=== PATIENT | female | born 1950 | race Caucasian/White ===

== ENCOUNTER 2017-12-16 17:46 | Emergency (ER) | payer MEDICARE, MEDICAID ==
[~2017-12-16 17:46] MED LIST: CYMBALTA 60MG60 MG PO; MOTRIN 800800 MG/TAB PO; PERCOCET 325 MG1 TA2 PO; ZOCOR 20MG20 MG PO
[2017-12-16 17:50] VITALS: BP 151/75; TEMP 97.9
[2017-12-16] MEDS ORDERED: PRINIVIL10 MG PO (18:47)
[2017-12-16] MEDS ORDERED: TIROSINT25 MC1 PO (18:48)
[2017-12-16] MEDS ORDERED: MASON NATURAL2000 IU (18:49)
[2017-12-16] MEDS ORDERED: CALCIUM CARBON650 M2 (18:49)
[2017-12-16] MEDS ORDERED: VITAMIN E 400 U4001 PO (18:50)
[2017-12-16] MEDS ORDERED: VITAMIN C500 MG PO (18:50)
[2017-12-16 19:06] LABS: BASO % 0.3 % (0.0-2.0); EOS # 0.3 (0.0-0.7); EOS % 2.4 % (0-4.0); GRAN % 67.3 % (42.2-75.2); HEMATOCRIT 42.4 % (37.0-47.0); HEMOGLOBIN 14.2 g/dl (12.5-16.0); LYMPH # 2.6 (1.2-3.4); LYMPH % 22.1 % (20.0-51.0); MEAN CELL VOLUME 92 fl (80.0-100.0); MEAN CORPUSCULAR HEMOGLOBIN 31 pg (27.0-31.0); MEAN CORPUSCULAR HGB CONC 34 g/dl (33.0-37.0); MEAN PLATELET VOLUME 9.4 fl (7.4-10.4); MONO # 0.9 (0.1-0.6); MONO % 7.5 % (1.7-9.3); PLATELET COUNT 239 K/mm3 (130-400); RED BLOOD COUNT 4.59 M/mm3 (4.10-5.30); REDCELL DISTRIBUTION WIDTH-CV 13.5 % (11.5-14.5)
[2017-12-16 19:22] LABS: BILIRUBIN,TOTAL 0.4 mg/dL (0.0-1.0); CALCIUM 9.4 mg/dL (8.4-10.2); CREATININE, serum 0.64 mg/dL (0.52-1.25); POTASSIUM 3.7 mmol/L (3.4-5.0); TOTAL PROTEIN 7.5 gm/dL (6.4-8.2)
[2017-12-16] MEDS ORDERED: ZITHROMAX Z PA250 MG PO (21:38)
[2017-12-16 21:51] VITALS: PULSE 64
== END 2017-12-16 21:51 | disposition home or self-care (01) ==
LOC: COL.ER 17:46
PROVIDERS: Family Medicine
DX: J44.1 Chronic obstructive pulmonary disease with (acute) exacerbation (principal); F17.210 Nicotine dependence, cigarettes, uncomplicated; Z79.1 Long term (current) use of non-steroidal anti-inflammatories (NSAID)
CPT/HCPCS: Q9967

== ENCOUNTER → 2018-02-19 | Outpatient (CLI) | payer MEDICARE, MEDICAID ==
[~2018-02-19] MED LIST changes: +CALCIUM CARBON650 M2; +MASON NATURAL2000 IU; +PRINIVIL10 MG PO; +TIROSINT25 MC1 PO; +VITAMIN C500 MG PO; +VITAMIN E 400 U4001 PO; +ZITHROMAX Z PA250 MG PO
== END ==
LOC: MHCPAIN 12:33
DX: G89.29 Other chronic pain (principal); M47.817 Spondylosis without myelopathy or radiculopathy, lumbosacral region; M53.3 Sacrococcygeal disorders, not elsewhere classified
CPT/HCPCS: G0463

== ENCOUNTER → 2018-03-19 | Outpatient (CLI) | payer MEDICARE, MEDICAID | LOC: MHCPAIN 15:18 | DX: M79.18 Myalgia, other site (principal) | CPT/HCPCS: J1040 ==

== ENCOUNTER → 2018-06-18 | Outpatient (CLI) | payer MEDICARE, MEDICAID | LOC: MHCPAIN 15:42 | DX: G89.29 Other chronic pain (principal); M47.817 Spondylosis without myelopathy or radiculopathy, lumbosacral region; M53.3 Sacrococcygeal disorders, not elsewhere classified | CPT/HCPCS: G0463 ==

== ENCOUNTER 2018-11-07 16:51 | Emergency (ER) | payer MEDICARE, MEDICAID ==
[~2018-11-07] VITALS: Ht 167.6 cm; Wt 60.5 kg
[2018-11-07 17:06] VITALS: TEMP 97.8
[2018-11-07 18:18] LABS: BASO % 0.3 % (0.0-2.0); EOS # 0.2 (0.0-0.7); EOS % 1.6 % (0-4.0); GRAN # 6.9 (1.4-6.5); GRAN % 68.4 % (42.2-75.2); HEMATOCRIT 43.7 % (37.0-47.0); HEMOGLOBIN 14.6 g/dl (12.5-16.0); LYMPH # 2.3 (1.2-3.4); LYMPH % 23.1 % (20.0-51.0); MEAN CELL VOLUME 93 fl (80.0-100.0); MEAN CORPUSCULAR HEMOGLOBIN 31 pg (27.0-31.0); MEAN CORPUSCULAR HGB CONC 33 g/dl (33.0-37.0); MONO # 0.6 (0.1-0.6); MONO % 6.3 % (1.7-9.3); PLATELET COUNT 192 K/mm3 (130-400); RED BLOOD COUNT 4.69 M/mm3 (4.10-5.30); REDCELL DISTRIBUTION WIDTH-CV 14.3 % (11.5-14.5)
[2018-11-07] MEDS ORDERED: TOPROL XL 25MG25 MG PO (18:26)
[2018-11-07 18:27] LABS: ALANINE AMINOTRANSFERASE 10 U/L (9-52); ALBUMIN 4.2 gm/dL (3.5-5.0); ALKALINE PHOSPHATASE 65 U/L (50-136); ANION GAP 8 mmol/L (7-16); AST,SGOT 26 U/L (15-37); BILIRUBIN,TOTAL 0.3 mg/dL (0.0-1.0); BLOOD UREA NITROGEN 12 mg/dL (7-17); CALCIUM 9.9 mg/dL (8.4-10.2); CARBON DIOXIDE 27 mmol/L (22-30); CHLORIDE 107 mmol/L (98-107); CREATININE, serum 0.63 (0.52-1.25); GLUCOSE 130 mg/dL (74-106); POTASSIUM 3.7 mmol/L (3.4-5.0); SODIUM 142 mmol/L (137-145); TOTAL PROTEIN 7.4 gm/dL (6.4-8.2)
[2018-11-07] MEDS ORDERED: ULTRAM 50MG TAB50 MG PO (18:28)
[2018-11-07] MEDS ORDERED: ZOCOR 40MG40 MG PO (18:29)
[2018-11-07 18:32] LABS: PROTHROMBIN TIME 11.2 SECONDS (9.7-12.8)
[2018-11-07] MEDS ORDERED: FOSAMAX 70MG TA70 MG PO (18:33)
[2018-11-07 18:38] LABS: TROPONIN-I < 0.012 ng/mL (0.000-0.035)
[2018-11-07] MEDS ORDERED: PEPCID 20MG TAB20 MG PO (21:09)
[2018-11-07] MEDS ORDERED: ATIVAN 1MG T1 MG/TAB PO (21:13)
[2018-11-07 21:37] VITALS: BP 155/87; PULSE 57
== END 2018-11-07 21:37 | disposition home or self-care (01) ==
LOC: COL.ER 16:51
PROVIDERS: Emergency Medicine
DX: F41.9 Anxiety disorder, unspecified (principal); K21.9 Gastro-esophageal reflux disease without esophagitis; R07.89 Other chest pain; E03.9 Hypothyroidism, unspecified; I10 Essential (primary) hypertension; F17.210 Nicotine dependence, cigarettes, uncomplicated; E78.5 Hyperlipidemia, unspecified

== ENCOUNTER → 2022-01-26 | Outpatient (CLI) | payer MEDICARE, MEDICAID ==
[~2022-01-26] MED LIST changes: +ATIVAN 1MG T1 MG/TAB PO; +FOSAMAX 70MG TA70 MG PO; +PEPCID 20MG TAB20 MG PO; +TOPROL XL 25MG25 MG PO; +ULTRAM 50MG TAB50 MG PO; +ZOCOR 40MG40 MG PO
== END ==
LOC: COL.RAD 13:02
DX: Z12.2 Encounter for screening for malignant neoplasm of respiratory organs (principal); J98.4 Other disorders of lung; R91.8 Other nonspecific abnormal finding of lung field; F17.210 Nicotine dependence, cigarettes, uncomplicated

== ENCOUNTER 2023-06-29 16:38 | Emergency (ER) | payer MEDICARE, MEDICAID ==
[~2023-06-29] VITALS: Ht 167.6 cm; Wt 45.9 kg
[2023-06-29] MEDS ORDERED: NS 1,000 ML IV ONE (17:15)
[2023-06-29 17:45] LABS: BASO % 0.3 % (0.0-2.0); EOS # 0.1 K/mm3 (0.0-0.7); EOS % 0.8 % (0.0-4.0); GRAN % 83.6 % (42.2-75.2); HEMATOCRIT 39.1 % (37.0-47.0); HEMOGLOBIN 13.4 g/dl (12.5-16.0); LYMPH # 1.3 K/mm3 (1.2-3.4); LYMPH % 9.2 % (20.0-51.0); MEAN CELL VOLUME 93 fl (80.0-100.0); MEAN CORPUSCULAR HEMOGLOBIN 32 pg (27-31); MEAN CORPUSCULAR HGB CONC 34 g/dl (33.0-37.0); MONO # 0.8 K/mm3 (0.1-0.6); MONO % 5.8 % (1.7-9.3); PLATELET COUNT 154 K/mm3 (130-400); RED BLOOD COUNT 4.21 M/mm3 (4.10-5.30); REDCELL DISTRIBUTION WIDTH-CV 13.4 % (11.5-14.5)
[2023-06-29 18:11] LABS: ALANINE AMINOTRANSFERASE 46 U/L (0-55); ALBUMIN 3.5 g/dL (3.4-4.8); ALKALINE PHOSPHATASE 68 U/L (40-150); ANION GAP 8 mmol/L (7-16); AST,SGOT 49 U/L (5-34); BILIRUBIN,TOTAL 0.6 mg/dL (0.2-1.2); BLOOD UREA NITROGEN 22 mg/dL (10-20); CALCIUM 9.7 mg/dL (8.4-10.2); CHLORIDE 101 mEq/L (98-107); CREATININE, serum 0.84 mg/dL (0.57-1.11); GLUCOSE 114 mg/dL (70-99); SODIUM 135 mEq/L (136-145); TOTAL PROTEIN 6.5 g/dl (6.2-8.1)
[2023-06-29 18:21] LABS: TROPONIN-I < 0.010 ng/mL (0.00-0.033)
[2023-06-29 18:35] LABS: URINE APPEARANCE CLEAR (CLEAR/HAZY); URINE BLOOD NEGATIVE (NEGATIVE); URINE COLOR YELLOW (YELLOW); URINE GLUCOSE NEGATIVE (NEGATIVE); URINE KETONE NEGATIVE (NEGATIVE); URINE NITRATE NEGATIVE (NEGATIVE); URINE PROTEIN(semi-quant) 1+ (NEGATIVE); URINE UROBILINOGEN 0.2 E.U/dL (0.2-1.0)
[2023-06-29 19:50] LABS: COLLECTION METHOD CLEAN CATCH
[2023-06-29 20:47] VITALS: BP 126/69; PULSE 53; TEMP 98
== END 2023-06-29 20:48 | disposition home or self-care (01) ==
LOC: COL.ER 16:38
PROVIDERS: Physician Assistant
DX: R55 Syncope and collapse (principal); D72.829 Elevated white blood cell count, unspecified; F17.200 Nicotine dependence, unspecified, uncomplicated
CPT/HCPCS: J7030